=== PATIENT | female | born 1955 | race Caucasian/White ===

== ENCOUNTER → 2018-01-26 | Outpatient (CLI) | payer OTHER | LOC: FIMAGING 08:46 | PROVIDERS: ATTEND Orthopaedic Surgery | DX: Z01.818 Encounter for other preprocedural examination (principal); M17.11 Unilateral primary osteoarthritis, right knee ==

== ENCOUNTER 2018-02-17 09:04 | Observation (INO) | payer BC, OTHER ==
--- NOTE | 2018-02-17 07:13 | PDHPUP ---
History & Physical Update H&P update statement: This history and physical update is based on an assessment of the patient which was completed after admission or registration (within 24 hours), but prior to the surgery/procedure. H&P update: H&P reviewed & patient examined, no change in patient's condition since H&P completed
[~2018-02-17 09:04] MED LIST: ROPIVACAINE 0.2% 80 MG, EPINEPHrine 0.2 MG, KETOROLAC TROMETHAMINE 30 MG in SYRINGE 0 ML IU ONE; TRANEXAMIC ACID 3,000 MG in NS (SYRINGE) 50 ML IRR ONE; TRANEXAMIC ACID 3,000 MG/50 ML BAG IRR ONE; VANCOMYCIN 1 GM VIAL ONE
[2018-02-17] MEDS ORDERED: ACETAMINOPHEN 325 MG TAB PO ONE (09:32)
[2018-02-17] MEDS ORDERED: FAMOTIDINE 20 MG TAB PO ONE (09:32)
[2018-02-17] MEDS ORDERED: ceFAZolin 2 GM/SWFI 2 GM/20 ML SYR IVP ONE (09:32)
[2018-02-17] MEDS ORDERED: DEXAMETHASONE 4 MG/ML VIAL IVP ONE (09:32)
[2018-02-17] MEDS ORDERED: LR 1,000 ML IV ONE (09:33)
[2018-02-17] MEDS ORDERED: MIDAZOLAM 2 MG/2 ML VIAL ONE (11:12)
[2018-02-17] MEDS ORDERED: MIDAZOLAM 2 MG/2 ML VIAL IVP ONE (11:20)
--- NOTE | 2018-02-17 11:21 | PDANEPAE ---
ANE Past Medical History - Cardiovascular History Hx Hypertension: No Hx Arrhythmias: No Hx Chest Pain: No Hx Coronary Artery / Peripheral Vascular Disease: No Hx CHF / Valvular Disease: No Hx Palpitations: No - Pulmonary History Hx COPD: No Hx Asthma/Reactive Airway Disease: No Hx Recent Upper Respiratory Infection: No Hx Oxygen in Use at Home: No Hx Sleep Apnea: No Sleep Apnea Screening Result - Last Documented: Negative - Neurologic History Hx Cerebrovascular Accident: No Hx Seizures: No Hx Dementia: No - Endocrine History Hx Diabetes: No - Renal History Hx Renal Disorders: No - Liver History Hx Hepatic Disorders: No - Neurological & Psychiatric Hx Hx Neurological and Psychiatric Disorders: No - Cancer History Hx Cancer: No - Congenital Disorder History Hx Congenital Disorders: No - GI History Hx Gastrointestinal Disorders: No - Other Health History Other Health History: none - Chronic Pain History Chronic Pain: Yes (neck issues) - Surgical History Prior Surgeries: 2011 R shoulder rotator cuff repair and bicep tendon repair ANE Review of Systems Review of Systems: - Exercise capacity METS (RN): 4 METS ANE Patient History - Allergies Allergies/Adverse Reactions: No Known Allergies Allergy (Verified 01/20/18 14:22) - Home Medications Home Medications: Multivitamins [Multivitamin (*)] 1 each PO DAILY 01/02/14 [Last Taken Unknown] Acetaminophen [Tylenol 325mg (*)] 325 mg PO Q2H 01/18/18 [Last Taken Unknown] Glucosamine Sulfate [Glucosamine Sulfate 500 MG (*)] 500 mg PO DAILY 01/18/18 [ Last Taken Unknown] Ibuprofen [Motrin (*)] 200 mg PO Q2H 01/18/18 [Last Taken Unknown] Rohwer-3 Fatty Acids [Fish Oil 1000 mg (*)] 1,000 mg PO DAILY 01/18/18 [Last Taken Unknown] - NPO status NPO Since - Liquids (Date): 02/16/18 NPO Since - Liquids (Time): 19:00 NPO Since - Solids (Date): 02/16/18 NPO Since - Solids (Time): 19:00 - Anes Hx Anes Hx: no prior problems - Smoking Hx Smoking Status: Former smoker - Family Anes Hx Family Hx Anesthesia Complications: father has similar issues with waking up during procedures ANE Labs/Vital Signs - Vital Signs Blood Pressure: 135/79 Heart Rate: 67 Respiratory Rate: 18 O2 Sat (%): 97 Height: 157.48 cm Weight: 56.699 kg ANE Physical Exam - Airway Neck exam: FROM Mallampati Score: Class 1 Mouth exam: normal dental/mouth exam - Pulmonary Pulmonary: no respiratory distress, no rales or rhonchi, clear to auscultation - Cardiovascular Cardiovascular: regular rate and rhythym, no murmur, rub, or gallop - ASA Status ASA Status: I ANE Anesthesia Plan Anesthesia Plan: spinal Regional Anesthesia: adductor canal FNB
[2018-02-17] MEDS ORDERED: fentaNYL 100 MCG/2 ML INJ ONE (11:24)
[2018-02-17] MEDS ORDERED: DEXAMETHASONE 4 MG/ML VIAL ONE ×2 (11:24)
[2018-02-17] MEDS ORDERED: PROPOFOL 200 MG/20 ML VIAL ONE ×2 (11:24→12:17)
[2018-02-17] MEDS ORDERED: NALOXONE HCL 0.4 MG/ML INJ IVP PRN (11:56)
[2018-02-17] MEDS ORDERED: ACETAMINOPHEN 500 MG TAB PO PRN (11:56)
[2018-02-17] MEDS ORDERED: ONDANSETRON 4 MG/2 ML VIAL IVP PRN ×2 (11:56→12:40)
[2018-02-17] MEDS ORDERED: fentaNYL 100 MCG/2 ML INJ IVP PRN (11:56)
[2018-02-17] MEDS ORDERED: LR 500 ML IV PRN (11:56)
[2018-02-17] MEDS ORDERED: oxyCODONE IR 5 MG TAB PO PRN (11:56)
[2018-02-17] MEDS ORDERED: PROMETHAZINE HCL 25 MG SUPPR PR PRN (12:40)
[2018-02-17] MEDS ORDERED: diphenhydrAMINE 25 MG CAP PO PRN (12:40)
[2018-02-17] MEDS ORDERED: ONDANSETRON DISINTEGRATING 4 MG TAB PO PRN (12:40)
[2018-02-17] MEDS ORDERED: BISACODYL 10 MG SUPP PR PRN (12:40)
[2018-02-17] MEDS ORDERED: POLYETHYLENE GLYCOL 3350 17 GM PKT PO PRN (12:40)
[2018-02-17] MEDS ORDERED: TEMAZEPAM 15 MG CAP PO PRN (12:40)
[2018-02-17] MEDS ORDERED: PROMETHAZINE HCL 25 MG/ML INJ IVP PRN (12:40)
[2018-02-17] MEDS ORDERED: LACTULOSE 20 GM/30 ML UDCUP PO PRN (12:40)
[2018-02-17] MEDS ORDERED: CYCLOBENZAPRINE 10 MG TAB PO PRN (12:40)
[2018-02-17] MEDS ORDERED: MAGNESIUM HYDROXIDE 30 ML UDCUP PO PRN (12:40)
[2018-02-17] MEDS ORDERED: DIPHENOXYLATE/ATROPINE LOMOTIL 1 TAB PO PRN (12:40)
[2018-02-17] MEDS ORDERED: METOCLOPRAMIDE 10 MG/2 ML VIAL IVP PRN (12:40)
--- NOTE | 2018-02-17 12:44 | POSTOPPROG ---
Post Op Note Date of Operation: 02/17/18 Surgeon: Stephen [facility] Clerk: rip yanez Anesthesiologist: Anesthesia: Spinal, Other (Specify) (adductor canal block) Pre-op Diagnosis: right knee OA Post-op Diagnosis: same Indication: right knee pain due to OA that failed conservative measures Procedure: R TKA robot assisted Findings: severe knee OA Inf/Abcess present in the surg proc area at time of surgery?: No EBL: 50-100
[2018-02-17] MEDS ORDERED: LR 1,000 ML IV SCH (13:00)
--- NOTE | 2018-02-17 13:08 | POSTANESTH ---
Post Anesthetic Evaluation Cardiovascular Status: Other, See Comment (BP 90s/60s, asymptomatic.) Respiratory Status: Normal, Stable, Similar to Pre-op Cond. Level of Consciousness/Mental Status: Can Participate in Eval, Alert and Oriented Pain Control: Adequate, Prn Tx Ordered Nausea/Vomiting Control: Adequate, Prn Tx Ordered Complications Possibly Related to Anesthesia: None Noted (Rt adductor canal nerve block performed in PACU.)
[2018-02-17] MEDS ORDERED: ceFAZolin 2 GM/DEXTROSE 100 ML IV SCH (14:00)
[2018-02-17] MEDS: HYDROmorphONE/DILAUDID 2 MG TAB PO PRN ×2 (17:22→23:30)
[2018-02-17] MEDS: ACETAMINOPHEN 325 MG TAB PO SCH ×2 (17:23→23:30)
[2018-02-17] MEDS: ceFAZolin 2 GM/SWFI 2 GM/20 ML SYR IVP SCH (20:48)
[2018-02-17] MEDS: ASPIRIN 81 MG CHEWABLE TAB PO SCH (20:48)
[2018-02-17] MEDS: SENNOSIDES/DOCUSATE SODIUM TAB PO SCH (20:48)
[2018-02-17] MEDS: FAMOTIDINE 20 MG TAB PO SCH (20:48)
[2018-02-18] MEDS: ceFAZolin 2 GM/SWFI 2 GM/20 ML SYR IVP SCH (05:07)
[2018-02-18] MEDS: ACETAMINOPHEN 325 MG TAB PO SCH (05:08)
--- NOTE | 2018-02-18 05:52 | GOP ---
[f rep st] OPERATIVE REPORT DATE OF OPERATION: 02/17/2018 SURGEON: Ish Cesar MD PATHOLOGY ASSISTANT: Fabiana Cesar, HERB. ANESTHESIA: Spinal. PREOPERATIVE DIAGNOSIS: Right knee osteoarthritis. POSTOPERATIVE DIAGNOSIS: Right knee osteoarthritis. PROCEDURE PERFORMED: Right total knee arthroplasty with computer navigation, robotic assist. FINDINGS: ESTIMATED BLOOD LOSS: 30 cc. INDICATIONS: The patient is a 62-year-old female with severe and progressive pain and deformity of t he right knee unresponsive to conservative care. The risks and benefits of surgical intervention wer e explained in detail. DESCRIPTION OF PROCEDURE: The patient was brought to the operative room and placed on the table in t he supine position. Spinal anesthesia was induced without difficulty. A pneumatic tourniquet was ap plied about the right proximal thigh, and the leg was prepped and draped in a sterile fashion. The l eg loaiza was applied. After exsanguination by elevation the tourniquet was inflated to 250 mmHg. Incision was made anterior medial from the tibial tuberosity to a point 2 cm proximal to the superior pole of the patella. Medial parapatellar arthrotomy was carried out from the superior pole of the p atella and posteriorly in line with the fibers of the Type II VMO. The medial collateral ligament wa s elevated and the infrapatellar fat pad was resected. The patella was everted and the articular surface was excised. A 32 mm patellar button was placed. Attention was turned first to the distal aspect of the femur. After exposure of the femur, 2 half pi ns were placed for fixation of the femoral array. In a similar fashion, 2 pins were placed anteromed ial on the tibia for fixation of the tibial array. External land marking and registration of the hip center was performed without difficulty. Internal femoral and tibial registration was carried out w ithout difficulty and the femoral and tibial checkpoints were placed and verified for accuracy. Attention was turned to the femur. The foot print for the size 3 femoral component was cut with the saw using the [employer] robotic system and verified for accuracy against the CT based plan. In a similar f ashion, the saw was used to cut the footprint for the size 3 tibial component using the [employer] system an d verified for accuracy against the CT based plan. The tibial articular surface was excised without difficulty, followed by the intercondylar box cut. The knee was extended and the remnants of the medial and lateral meniscus were excised. The posterio r capsule was injected with ropivacaine, epinephrine and Toradol. A size 3 tibial tray was positione d. Trial reduction was then carried out. There was excellent range of motion, alignment, and stabil ity using the 3 x 9 mm polyethylene. All trials were then removed. The joint was thoroughly irrigated and carefully dried. The X3 press-f it components were implanted. The permanent 9 mm polyethylene was placed without difficulty. The tourniquet was deflated and all bleeders were coagulated. The wound was thoroughly irrigated and closed using interrupted sutures of 2-0 Vicryl for the joint capsule. The subcu was closed with 3-0 Vicryl and the skin with 4-0 Monocryl. Dermabond and Steri-Strips were applied followed by a kelsie sive dressing. The patient was then moved from the operating room to the recovery room in good condi tion, having tolerated the procedure well. PATHOLOGY: Severe medial and patellofemoral osteoarthritis. /[id number]/MODL
[2018-02-18 07:33] VITALS: BP 106/62
[2018-02-18] MEDS: ASPIRIN 81 MG CHEWABLE TAB PO SCH (08:29)
[2018-02-18] MEDS: FAMOTIDINE 20 MG TAB PO SCH (08:29)
[2018-02-18] MEDS: SENNOSIDES/DOCUSATE SODIUM TAB PO SCH (08:30)
--- NOTE | 2018-02-18 21:56 | SOAPPROG ---
SOAP Progress Note Assessment/Plan: Assessment: Patient is doing well POD 1 s/p L TKA pain well controlled on oral pain meds VTE ppx: recommend ASA BID for 4 weeks D/c planning: d/c to home pending release from PT Plan: 02/18/18 21:55 Subjective: pain well controlled, denies SOB, chest pain and N/V. Objective: Vital Signs Temp Pulse Resp BP Pulse Ox 36.8 C 76 16 106/62 95 02/18/18 07:32 02/18/18 07:32 02/18/18 07:32 02/18/18 07:32 02/18/18 07:32 Laboratory Results 02/18/18 04:25 02/17/18 02/18/18 02/19/18 05:59 05:59 05:59 Intake Total 3140 Output Total 2125 Balance 1015 LLE; incision dressing is clean and dry, NVI, +pf/df ICD10 Worksheet Patient Problems: Problems Problem Status Onset Primary localized osteoarthritis of right knee Acute
--- NOTE | 2018-02-22 09:38 | GDS ---
[f rep st] DISCHARGE SUMMARY ADMISSION DIAGNOSIS: Right knee osteoarthritis. DISCHARGE DIAGNOSIS: Right knee osteoarthritis. PROCEDURE: Right total knee arthroplasty robot-assisted with computer navigation. VTE PROPHYLAXIS: Recommend 81 mg aspirin twice daily for 4 weeks. BRIEF DESCRIPTION OF HOSPITAL STAY: Patient was admitted for an elective joint arthroplasty. The pa elzbieta tolerated the procedure well and has passed physical therapy. The patient was given appropriat e antibiotic prophylaxis and venous thromboembolism prophylaxis. The patient's pain was well control led on oral pain medication, patient was holding down food, and had urinated. Decision was made to d ischarge the patient. The patient was given post-operative prescriptions pre-operatively. PLAN: Follow up as scheduled Dr. Cesar's office, March 15 at 8:45 a.m. /[id number]/MODL
== END 2018-02-18 10:11 | disposition home or self-care (01) ==
LOC: F3N 09:04
PROVIDERS: ADMIT Orthopaedic Surgery; ATTEND Orthopaedic Surgery
PROC: 0SRC0JZ Replacement of Right Knee Joint with Synthetic Substitute, Open Approach (ICD-10-PCS; principal; 2018-02-17 09:15)
DX: M17.11 Unilateral primary osteoarthritis, right knee (principal)
CPT/HCPCS: 27447; 73560; 97161; G0378; G8978; G8979; G8980; J0171; J0690; J1100; J1885; J2250; J2704; J2795; J3010; J3370